=== PATIENT | male | born 1980 | race African-American/Black ===

== ENCOUNTER → 2022-09-24 | Outpatient (CLI) | payer OTHER ==
[2022-09-24 09:41] LABS: Basophils # (auto) 0 10 ^3/uL (0-0.2); Eosinophils # (auto) 0.1 10 ^3/uL (0-0.8); Hematocrit 43.9 % (41.0-53.0); Lymphocytes # (auto) 1.7 10 ^3/uL (0.4-5.4); Monocytes # (auto) 0.4 10 ^3/uL (0-1.3); Nucleated Red Blood Cells % 0.2 %; Red Blood Cells 6.06 10^6/uL (4.5-5.90); White Blood Cell 5.6 10^3/uL (4.4-10.8)
[2022-09-24 09:43] LABS: Basophils % (auto) 0.5 % (0.0-2.0); Eosinophils % (auto) 2.1 % (0.0-7.0); Hemoglobin 14.3 g/dL (13.5-17.5); Lymphocytes % (auto) 30.3 % (10.0-50.0); Mean Corpuscular Hemoglobin 23.5 pg (28.0-32.0); Mean Corpuscular Hgb Conc. 32.5 g/dL (32.0-36.0); Mean Corpuscular Volume 72.4 fL (80.0-100.0); Monocytes % (auto) 6.8 % (0.0-12.0); Neutrophils # (auto) 3.3 10 ^3/uL (1.6-8.6); Neutrophils % (auto) 60.3 % (37.0-80.0); Red Cell Distribution Width 14.6 % (11.8-14.3)
[2022-09-24 10:23] LABS: Urine Bacteria NONE SEEN /hpf (None Seen); Urine Blood Negative /uL (Negative); Urine Specific Gravity 1.013 (1.001-1.035); Urine WBC <1 /hpf (0 - 3)
[2022-09-24 13:19] LABS: Albumin 3.6 g/dL (3.4-5.0); Calcium 9.2 mg/dL (8.5-10.1); Potassium 4.5 mmol/L (3.5-5.1)
[2022-09-24 13:56] LABS: BUN/Creatinine Ratio 9.2 (10.0-20.0); Bilirubin, Total 0.8 mg/dL (0.2-1.0); Total Protein 7.5 g/dL (6.4-8.2)
== END | disposition home or self-care (01) ==
LOC: LAB 09:14
PROVIDERS: ATTEND Nurse Practitioner
DX: I10 Essential (primary) hypertension (principal); E78.5 Hyperlipidemia, unspecified; R73.9 Hyperglycemia, unspecified; E03.9 Hypothyroidism, unspecified
CPT/HCPCS: 36415; 80053; 80061; 81001; 83036; 84443; 85025

== ENCOUNTER 2025-05-28 18:26 | Emergency (ER) | payer MEDICAID, OTHER ==
[~2025-05-28] VITALS: Ht 177.8 cm; Wt 92.8 kg
--- NOTE | 2025-05-28 18:39 | ED.PDOC ---
History of Present Illness HPI Comments 45 y/o M presents with c/c of right-sided flank pain x3 weeks. The patient reports on progressively worsening pain, additional answered nausea and vomiting, today. Pain is a 7/10 severity. History of kidney stones. Denies any urinary symptoms, fever, further acute symptoms. Upon arrival to ED triage, patient was found hypertensive. The patient reports being off his hypertensive medications for the past 4 months. Time Seen by MD: 18:28 Primary Care Provider: NONE Reviewed Notes: Nurses Notes, Medications, Allergies Allergies: Coded Allergies: NO KNOWN ALLERGIES (Unverified , 10/16/14) Information Source: Patient Mode of Arrival: Ambulatory Severity: Moderate Duration: Since onset Prehospital treatment: None Past Medical History PAST MEDICAL HISTORY: HTN Family History Family History: Unobtainable Social History Smoker: Non-Smoker Alcohol: Occasionally Drugs: Denies Drug Use Lives In: Home All Other Systems: Reviewed and Negative (As per HPI) Physical Exam General Appearance: No Apparent Distress, Normal HEENT: Pharynx Normal Neck: Full Range of Motion, Non-Tender Respiratory: Lungs Clear, No Respiratory Distress, Normal Breath Sounds Cardiovascular: No Edema, No JVD, No Murmur, No Gallop, Normal Peripheral Pulses, Regular Rate/Rhythm Breast Exam: Deferred Gastrointestinal: No Organomegaly, Non Tender, No Pulsatile Mass, Normal Bowel Sounds, Soft Genitalia: Deferred Pelvic: Deferred Rectal: Deferred Extremities: No calf tenderness, Normal range of motion, Non-tender, No pedal edema Musculoskeletal : Apperance: Normal Neurologic: Alert, spindle frame carver II-XII nml as Tested, No Motor Deficits, Normal Affect, Normal Mood, No Sensory Deficits Cerebellar Function: Normal Reflexes: Normal Skin: Dry, Normal Color, Warm Lymphatic: No Adenopathy Was a procedure done? Was a procedure done?: No Differential Dx Considerations may include: sciatica, sprain, strain, musculoskeletal pain, neurovascular injuries, fractures, DDD, kidney stones, UTI, among others X-Ray, Labs, Meds, VS Vital Signs Date Time Temp Pulse Resp B/P (MAP) Pulse Ox O2 Delivery O2 Flow Rate FiO2 05/28/25 23:05 98.5 83 19 152/93 (112) 99 98.5 05/28/25 22:35 98.1 83 19 212/103 (139) 99 98.1 05/28/25 22:30 212/103 05/28/25 22:19 212/103 05/28/25 21:46 213/113 05/28/25 21:46 213/112 05/28/25 21:45 97.9 78 18 239/129 (165) 99 97.9 05/28/25 21:02 71 18 212/138 05/28/25 20:38 98.2 89 18 190/129 (149) 99 98.2 05/28/25 19:00 80 05/28/25 18:35 97.7 89 18 193/147 99 97.7 Lab Test 05/28/25 22:00 05/28/25 19:36 05/28/25 19:06 05/28/25 18:54 Range/Units Troponin I High Sensitivity 11 9 8 </=54 ng/L Lactic Acid Level 1.4 0.4-2.0 mmol/L Urine Color Yellow Yellow Urine Clarity Clear Clear Urine pH 5.5 5.0-9.0 Urine Specific [place] 1.028 1.001-1.035 Urine Protein 1+ H Negative Urine Ketones Trace Negative Urine Blood 2+ H Negative /uL Urine Nitrite Negative Negative Urine Bilirubin Negative Negative Urine Urobilinogen Normal Negative mg/dL Urine Leukocyte Esterase Negative Negative /uL Urine RBC 118 0 - 3 /hpf Urine Microscopic WBC 5 H 0-3 /HPF Urine Squamous Epithelial Cells None seen <5 /hpf Urine Calcium Oxalate Crystals Few None Seen Urine Bacteria None seen None Seen /hpf Urine Mucus Few None Seen Urine Yeast (Budding) Occasional None Seen /hpf Urine Glucose Trace Normal mg/dL White Blood Count 5.7 4.4-10.8 10^3/uL Red Blood Count 6.11 H 4.5-5.90 10^6/uL Hemoglobin 14.1 13.5-17.5 g/dL Hematocrit 44.5 41.0-53.0 % Mean Corpuscular Volume 72.9 L 80.0-100.0 fL Mean Corpuscular Hemoglobin 23.1 L 28.0-32.0 pg Mean Corpuscular Hemoglobin Concent 31.6 L 32.0-36.0 g/dL Red Cell Distribution Width 15.8 H 11.8-14.3 % Platelet Count 187 140-450 10^3/uL Mean Platelet Volume 8.5 6.9-10.8 fL Neutrophils (%) (Auto) 47.7 37.0-80.0 % Lymphocytes (%) (Auto) 44.5 10.0-50.0 % Monocytes (%) (Auto) 6.1 0.0-12.0 % Eosinophils (%) (Auto) 1.2 0.0-7.0 % Basophils (%) (Auto) 0.5 0.0-2.0 % Neutrophils # (Auto) 2.7 1.6-8.6 10 ^3/uL Lymphocytes # (Auto) 2.6 0.4-5.4 10 ^3/uL Monocytes # (Auto) 0.3 0-1.3 10 ^3/uL Eosinophils # (Auto) 0.1 0-0.8 10 ^3/uL Basophils # (Auto) 0 0-0.2 10 ^3/uL Nucleated Red Blood Cells 0.2 % Sodium Level 144 136-145 mmol/L Potassium Level 3.8 3.5-5.1 mmol/L Chloride Level 107 98-107 mmol/L Carbon Dioxide Level 27 20-31 mmol/L Anion Gap 10 5-15 Blood Urea Nitrogen 10 9-23 mg/dL Creatinine 1.32 H 0.700-1.30 mg/dL Glomerular Filtration Rate Calc 67 >90 mL/min BUN/Creatinine Ratio 7.6 L 10.0-20.0 Serum Glucose 85 74-106 mg/dL Calcium Level 9.7 8.7-10.4 mg/dL Total Bilirubin 0.6 0.2-1.0 mg/dL Aspartate Amino Transferase (AST) 17 13-40 U/L Alanine Aminotransferase (ALT) 20 7-40 U/L Alkaline Phosphatase 109 46-116 U/L B-Type Natriuretic Peptide 32.46 0-100 pg/mL Total Protein 7.6 5.7-8.2 g/dL Albumin 4.3 3.2-4.8 g/dL Current Medications Medications (Trade) Dose Ordered Sig/Carl Route Start Time Stop Time Status Last Admin Morphine Sulfate 4 mg ONCE ONCE IV 05/28/25 19:00 05/28/25 19:01 PA 05/28/25 21:02 Ondansetron HCl (Zofran) 4 mg ONCE ONCE IV 05/28/25 19:00 05/28/25 19:01 PA 05/28/25 21:15 Ketorolac Tromethamine (Toradol Injection) 15 mg ONCE ONCE IV 05/28/25 21:15 05/28/25 21:16 DC 05/28/25 21:16 Tamsulosin HCl (Flomax) 0.4 mg ONCE ONCE PO 05/28/25 21:15 05/28/25 21:16 DC 05/28/25 21:16 Hydralazine HCl (Apresoline Injection) 5 mg ONCE ONCE IV 05/28/25 21:30 05/28/25 21:31 DC 05/28/25 21:46 Clonidine HCl (Catapres Tablet) 0.1 mg ONCE ONCE PO 05/28/25 21:30 05/28/25 21:31 DC 05/28/25 21:46 Hydralazine HCl (Apresoline Injection) 5 mg ONCE ONCE IV 05/28/25 22:30 05/28/25 22:31 DC 05/28/25 22:30 X-Ray, Labs, Meds, VS Comment IMPRESSION: 1. Nonobstructing bilateral renal calculi measuring up to 1 cm in the right renal pelvis. No hydronephrosis. 2. Small sub 5 mm left lower pulmonary nodules, nonspecific though likely postinfectious or postinflammatory. 3. Small right adrenal gland adenoma. Images Reviewed?: Images reviewed and evaluated by me Reevaluation 1ST: Unchanged Time of 2ND Reevaluation: 21:49 Reevaluation 2ND: Improved Patient Education/Counseling: Diagnosis, Treatment, Need For Follow Up Family Education/Counseling: No Family Present SEPSIS Sepsis Screen Physician Orders Ct Ab Pel Wo Con-No Oral Or Iv (05/28/25 18:50) Electrocardigram (05/28/25 19:50) Electrocardigram (05/28/25 21:50) Chest Two Views Routine (05/28/25 18:50) Club Attendant (05/28/25 ) Heplock Iv (05/28/25 ) Vital Signs Date Time Temp Pulse Resp B/P (MAP) Pulse Ox O2 Delivery O2 Flow Rate FiO2 05/28/25 23:05 98.5 83 19 152/93 (112) 99 98.5 05/28/25 22:35 98.1 83 19 212/103 (139) 99 98.1 05/28/25 22:30 212/103 05/28/25 22:19 212/103 05/28/25 21:46 213/113 05/28/25 21:46 213/112 05/28/25 21:45 97.9 78 18 239/129 (165) 99 97.9 05/28/25 21:02 71 18 212/138 05/28/25 20:38 98.2 89 18 190/129 (149) 99 98.2 05/28/25 19:00 80 05/28/25 18:35 97.7 89 18 193/147 99 97.7 Laboratory Tests Test 05/28/25 18:54 05/28/25 19:36 White Blood Count 5.7 10^3/uL (4.4-10.8) Lactic Acid Level 1.4 mmol/L (0.4-2.0) Medications Medications Dose Ordered Sig/Carl Route Start Time Stop Time Status Last Admin Dose Admin Clonidine HCl 0.1 mg ONCE ONCE PO 05/28/25 21:30 05/28/25 21:31 PA 05/28/25 21:46 Hydralazine HCl 5 mg ONCE ONCE IV 05/28/25 21:30 05/28/25 21:31 PA 05/28/25 21:46 Hydralazine HCl 5 mg ONCE ONCE IV 05/28/25 22:30 05/28/25 22:31 PA 05/28/25 22:30 Ketorolac Tromethamine 15 mg ONCE ONCE IV 05/28/25 21:15 05/28/25 21:16 PA 05/28/25 21:16 Morphine Sulfate 4 mg ONCE ONCE IV 05/28/25 19:00 05/28/25 19:01 PA 05/28/25 21:02 Ondansetron HCl 4 mg ONCE ONCE IV 05/28/25 19:00 05/28/25 19:01 PA 05/28/25 21:15 Tamsulosin HCl 0.4 mg ONCE ONCE PO 05/28/25 21:15 05/28/25 21:16 PA 05/28/25 21:16 Departure 1 Departure Time of Disposition: 23:18 Impression: Primary Impression: Renal calculus, right Additional Impression: Hypertension Qualified Codes: I10 - Essential (primary) hypertension Disposition: 01 HOME / SELF CARE / HOMELESS Condition: Stable e-Prescriptions Losartan Potassium (Losartan Potassium) 100 Mg Tab 1 TAB PO DAILY for 30 Days, #30 TAB 5 Refills Prov: KENDALL LOU [facility] 05/28/25 Tamsulosin Hcl (Tamsulosin Hcl) 0.4 Mg Cap 1 CAP PO DAILY for 10 Days, #10 CAP Prov: KENDALL LOU RAISSA 05/28/25 Discharged With: Self Critical Care Note Critical Care Time?: No Stability Stability form required: No Heart Score Heart Score: Heart Score Response (Comments) Value History N/A 0 EKG N/A 0 Age N/A 0 Risk Factors N/A 0 Troponin N/A 0 Total 0 I personally scribed for ER ([email or web address]) on 05/28/25 at 18:39. Electronically submitted by Selwyn Heath [email or web address]). I personally scribed for ER ([email or web address]) on 05/28/25 at 19:03. Electronically s ubmitted by Selwyn Heath ([email or web address]). ER May 28, 2025 18:39 KENDALL LOU [facility] May 28, 2025 18:49
--- NOTE | 2025-05-28 18:55 | ECG ---
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
[2025-05-28 19:21] LABS: Hematocrit 44.5 % (41.0-53.0); Hemoglobin 14.1 g/dL (13.5-17.5); Mean Corpuscular Hemoglobin 23.1 pg (28.0-32.0); Nucleated Red Blood Cells % 0.2 %
[2025-05-28 19:23] LABS: Mean Corpuscular Volume 72.9 fL (80.0-100.0)
[2025-05-28 19:33] LABS: Urine Budding Yeast OCCASIONAL /hpf (None Seen); Urine Protein, UAD 1+ (Negative)
[2025-05-28 19:42] LABS: Alanine Aminotransferase 20 U/L (7-40); Albumin 4.3 g/dL (3.2-4.8); Alkaline Phosphatase 109 U/L (46-116); Anion Gap 10 (5-15); BUN/Creatinine Ratio 7.6 (10.0-20.0); Blood Urea Nitrogen 10 mg/dL (9-23); Calcium 9.7 mg/dL (8.7-10.4); Carbon Dioxide 27 mmol/L (20-31); Glucose 85 mg/dL (74-106); Potassium 3.8 mmol/L (3.5-5.1); Sodium 144 mmol/L (136-145); Total Protein 7.6 g/dL (5.7-8.2)
[2025-05-28 19:43] LABS: Bilirubin, Total 0.6 mg/dL (0.2-1.0)
[2025-05-28 19:46] LABS: Chloride 107 mmol/L (98-107)
--- NOTE | 2025-05-28 19:46 | DVH ---
CHEST RADIOGRAPH INDICATION: sob TECHNIQUE: Frontal and lateral view of the chest was obtained COMPARISON: None FINDINGS: Lines and Tubes: None Lungs: Clear Pleura: No effusion. No pneumothorax. Cardiomediastinal contours: Unremarkable Bones: Unremarkable IMPRESSION: No evidence of acute disease.
--- NOTE | 2025-05-28 20:31 | DVH ---
CLINICAL HISTORY: Right flank pain TECHNIQUE: CT of the abdomen and pelvis was performed without intravenous contrast. This exam was performed according to our departmental dose optimization program. Up-to-date CT equipment and radiation dose reduction techniques are utilized as appropriate. CTDI: 11.56 DLP: 645.95 WID: COMPARISON: None FINDINGS: Lower Thorax: Sub 5 mm left lower lobe pulmonary nodules on series 3 images 14 and 15. Lung bases otherwise clear. Normal-sized heart. Liver and Biliary system: Unremarkable. Spleen: Unremarkable. Adrenal Glands and Kidneys: Normal adrenal glands aside from a small right adrenal gland adenoma measuring 1.2 cm on series 2, image 27.. There are nonobstructing bilateral renal calculi measuring up to 1 cm in the right renal pelvis on series 2, image 37. Pancreas and Retroperitoneum: Unremarkable. Aorta and Major Vessels: Aortoiliac vessels are normal in caliber with mild calcified atherosclerotic plaque Bowel, Mesentery and Peritoneal space: Normal caliber small and large bowel. Normal appendix. No free air or fluid collection. Pelvis: Unremarkable. Abdominal wall and Osseous Structures: Tiny sclerotic foci in the proximal femurs and pelvis, likely bone islands. No destructive osseous lesion. IMPRESSION: 1. Nonobstructing bilateral renal calculi measuring up to 1 cm in the right renal pelvis. No hydronephrosis. 2. Small sub 5 mm left lower pulmonary nodules, nonspecific though likely postinfectious or postinflammatory. 3. Small right adrenal gland adenoma.
[2025-05-28] MEDS: MORPHINE SULFATE 4 MG/ML SYR/VIAL IV ONE (21:02)
[2025-05-28] MEDS: ONDANSETRON HCL 4 MG/2 ML VIAL IV ONE (21:15)
[2025-05-28] MEDS: TAMSULOSIN HYDROCHLORIDE 0.4 MG CAP PO ONE (21:16)
[2025-05-28] MEDS: KETOROLAC TROMETH 30 MG/ML 1ML VIAL IV ONE (21:16)
[2025-05-28] MEDS: hydrALAZINE HCL 20 MG/ML VL IV ONE ×2 (21:46→22:30)
[2025-05-28] MEDS: hydrALAZINE HCL 20 MG/ML VL ONE (22:19)
[2025-05-28 23:05] VITALS: BP 152/93; PULSE 83; RESP 19; TEMP 98.5; O2SAT 99
[2025-05-28] MEDS ORDERED: LOSA-535 PO (23:19)
[2025-05-28] MEDS ORDERED: TAMS0.4C39 PO (23:19)
[2025-05-28] MEDS: OXYCODONE W/ ACETAMINOPHEN 5/325MG TABLET PO ONE (23:29)
[2025-05-28] MEDS ORDERED: HYDR-4902 PO (23:31)
== END 2025-05-28 23:30 | disposition home or self-care (01) ==
LOC: ER 18:26
DX: N20.0 Calculus of kidney (principal); I10 Essential (primary) hypertension; F10.90 Alcohol use, unspecified, uncomplicated; Z87.442 Personal history of urinary calculi
CPT/HCPCS: 36415; 71046; 74176; 80053; 81001; 83605; 83880; 84484; 85025; 93005; 96374; 96375; 96376; 99285; J0360; J1885; J2270; J2405